=== PATIENT | male | born 1975 | race Caucasian/White ===

== ENCOUNTER 2017-03-26 18:42 | Emergency (ER) | payer SELFPAY ==
[2017-03-26 18:47] VITALS: BP 146/86; PULSE 81; TEMP 98.1; BMI 27.2
--- NOTE | 2017-03-26 19:13 | PDOC ---
History of Present Illness - General Chief Complaint: Wound Stated Complaint: WOUND Time Seen by Provider: 03/26/17 18:52 - History of Present Illness Initial Comments: 03/26/17 19:08 CHIEF COMPLAINT: mole HISTORY OF PRESENT ILLNESS: 42 yo M with no significant PMH presents to fast track with concerns regarding "mole on my neck." Patient states just about an hour ago he took a shower and felt that a mole that "I've had since childhood" suddenly had a growth on it. He denies any pain to the mole and denies any fever, chills, nausea, vomiting, diarrhea. He states "I just noticed it and freaked out and came straight here." No recent travel or sick contacts. PAST MEDICAL HISTORY: Denies past medical history FAMILY HISTORY: Denies SOCIAL HISTORY: Denies tobacco, alcohol, illicit drug use. SURGICAL HISTORY: Denies ALLERGIES: PCN REVIEW OF SYSTEMS General/Constitutional: Denies fever or chills. Denies weakness. HEENT: Denies change in vision. Denies ear pain or discharge. Denies sore throat. Cardiovascular: Denies chest pain or shortness of breath. Respiratory: Denies cough, wheezing, or hemoptysis. Gastrointestinal: Denies nausea, vomiting, diarrhea or constipation. Denies rectal bleeding. Genitourinary: Denies dysuria, frequency, or change in urination. Musculoskeletal: Denies joint or muscle swelling or pain. Denies neck or back pain. Skin: Mole to back of neck with "new growth." PHYSICAL EXAM General Appearance: Well-appearing, appropriately dressed. HEENT: EOMI, PERRLA. No conjunctival pallor. No photophobia, scleral icterus. Respiratory/Chest: Lungs CTAB. Cardiovascular: RRR. S1, S2. Musculoskeletal/Extremities: Normal inspection. FROM of all extremities, normal capillary refill. Pelvis Stable. No CVA tenderness. No tenderness to extremities, pedal edema, swelling, erythema or deformity. Integumentary: Pea-sized skin tag to left lower neck. No erythema, swelling, tenderness. Appropriate color, dry, warm. Neurologic: contact lens inspector II-XII intact. Fully oriented, alert. Appropriate mood/affect. Motor strength 5/5. No appreciable EOM palsy, facial droop or sensory deficit. Past History - Past Medical History Allergies/Adverse Reactions: Allergies Allergy/AdvReac Type Severity Reaction Status Date / Time Penicillins Allergy Verified 03/26/17 18:47 Home Medications: Ambulatory Orders NK [No Known Home Medication] 03/26/17 Other medical history: PSORIASIS - Surgical History Abdominal Surgery: Yes (HERNIA) - Suicide/Smoking/Psychosocial Hx Smoking History: Never smoked Number of Cigarettes Smoked Daily: 0 Cigars Per Day: 1 Information on smoking cessation initiated: No Hx Alcohol Use: No Drug/Substance Use Hx: No *Physical Exam - Vital Signs Last Vital Signs Temp Pulse Resp BP Pulse Ox 98.1 F 81 20 146/86 98 03/26/17 18:44 03/26/17 18:44 03/26/17 18:44 03/26/17 18:44 03/26/17 18:44 Medical Decision Making - Medical Decision Making 03/26/17 19:12 42 yo M with no significant PMH presents to fast track with concerns regarding "mole on my neck." Advised patient to f/u with dermatology for further evaluation and removal of skin tag. *DC/Admit/Observation/Transfer Diagnosis at time of Disposition: Acquired skin tag - Discharge Dispostion Disposition: HOME Condition at time of disposition: Stable Admit: No - Patient Instructions Printed Discharge Instructions: Vik Additional Instructions: Please follow up with Dr. Motta for further evaluation of your skin concerns. If you develop any redness, warmth, swelling, tenderness, or pain to the area, or you develop fever, chills, nausea, vomiting, or diarrhea, please return to the ER immediately.
== END 2017-03-26 19:28 | disposition home or self-care (01) ==
LOC: JERFT 18:42
DX: L91.8 Other hypertrophic disorders of the skin (principal)
CPT/HCPCS: 99281-25